=== PATIENT | male | born 1975 | race Caucasian/White ===

== ENCOUNTER 2019-03-22 18:59 | Inpatient (IN) | payer OTHER ==
[~2019-03-22] VITALS: Ht 182.9 cm; Wt 148.8 kg
[2019-03-22 19:07] VITALS: BP 203/126
[2019-03-22] MEDS ORDERED: REGLAN 10 MG TA10 MG PO (19:27)
[2019-03-22] MEDS ORDERED: HYDRALAZINE 2525 MG PO (19:29)
[2019-03-22] MEDS ORDERED: NORVASC5 MG PO (19:29)
[2019-03-22] MEDS ORDERED: CARVEDILOL25 MG PO (19:29)
[2019-03-22] MEDS ORDERED: CLONIDINE HCL0.2 M2 PO ×2 (19:30)
[2019-03-22] MEDS ORDERED: CHLORTHALIDONE25 MG PO (19:30)
[2019-03-22] MEDS ORDERED: GLIPIZIDE ER5 MG PO (19:31)
[2019-03-22] MEDS ORDERED: LIPITOR 20 MG T20 M1 PO (19:31)
[2019-03-22] MEDS ORDERED: QUINAPRIL HCL40 MG PO (19:31)
[2019-03-22] MEDS ORDERED: PRILOSEC OTC20 MG PO (19:32)
[2019-03-22] MEDS ORDERED: METFORMIN HCL500 MG PO (19:32)
[2019-03-22 19:46] LABS: ABSOLUTE EOSINOPHILS 0.5 thou/uL (0.0-0.7); ABSOLUTE LYMPHOCYTES 1.4 thou/uL (0.8-5.3); ABSOLUTE MONOCYTES 0.7 thou/uL (0.0-1.2); ABSOLUTE NEUTROPHILS 5.4 thou/uL (1.6-8.1); BASOPHILS 0.6 %; HEMATOCRIT 40.3 % (42.0-52.0); HEMOGLOBIN 14.1 gm/dL (14.0-18.0); LYMPHOCYTES 17.5 %; MCH 30.3 pg (26.0-34.0); MCHC 34.9 g/dL (28.0-37.0); MCV 86.6 fL (80.0-100.0); MONOCYTES 9.2 %; MPV 8.8 fl. (7.2-11.1); NUCLEATED RBCS 0 /100WBC; PLATELET COUNT* 226 thou/uL (150-400); POLYS 66.7 %; RBC 4.65 mil/uL (4.50-6.00); RDW-CV 13.5 % (10.5-14.5)
[2019-03-22 20:07] LABS: ANION GAP 9 mmol/L (7-16); BUN 19 mg/dL (7-18); CALCIUM 8.8 mg/dL (8.5-10.1); CHLORIDE 104 mmol/L (98-107); CO2 29 mmol/L (21-32); CREATININE 0.9 mg/dL (0.6-1.3); GLUCOSE 181 mg/dL (70-99); SODIUM 142 mmol/L (136-145)
[2019-03-22 20:09] LABS: POTASSIUM 2.9 mmol/L (3.5-5.1)
[2019-03-22 20:11] LABS: ALBUMIN 3.6 g/dL (3.4-5.0); ALKALINE PHOSPHATASE 62 U/L (46-116); LIPASE 129 U/L (73-393); NT-PRO BRAIN NAT PEPTIDE 170 pg/mL (<300); SGOT 29 U/L (15-37); SGPT 43 U/L (30-65); TOTAL BILIRUBIN 0.5 mg/dL (<0.1-1.0); TOTAL PROTEIN 6.6 g/dL (6.4-8.2); TROPONIN-I LEVEL <0.06 ng/mL (<0.06)
[2019-03-23 02:14] VITALS: BP 170/87
[2019-03-23 02:45] VITALS: BP 105/53
[2019-03-23 05:57] VITALS: BP 194/97
[2019-03-23 10:31] LABS: CALCIUM 8.9 mg/dL (8.5-10.1); CREATININE 0.7 mg/dL (0.6-1.3)
[2019-03-23 10:39] LABS: POTASSIUM 2.9 mmol/L (3.5-5.1)
[2019-03-23 12:08] LABS: URINE BILIRUBIN NEGATIVE (Negative); URINE BLOOD NEGATIVE (Negative); URINE CLARITY CLEAR; URINE COLOR YELLOW; URINE GLUCOSE-RANDOM TRACE (Negative); URINE KETONES 1+ (Negative); URINE LEUKOCYTES-REFLEX NEGATIVE (Negative); URINE NITRITE-REFLEX NEGATIVE (Negative); URINE PROTEIN 1+ (Negative); URINE SPECIFIC GRAVITY 1.015 (1.005-1.030)
[2019-03-23 13:03] LABS: AMP/METHAMP Negative (Negative); BARBITURATES Negative (Negative); BENZODIAZEPINES Negative (Negative); COCAINE Negative (Negative); METHADONE Negative (Negative); OPIATES Negative (Negative); PCP Negative (Negative); THC POSITIVE (Negative)
--- NOTE | 2019-03-23 15:39 | EKG ---
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1975 Requested By: Katrina Sidhu Order Number: [id number] MD: Kameron Lin Measurements Intervals [place] Rate: 74 P: 10 WV: 171 QRS: -19 QRSD: 107 T: -11 QT: 421 QTc: 467 Interpretive Statements Sinus rhythm Borderline left axis deviation Borderline T abnormalities, inferior leads Baseline wander in lead(s) II,aVR,aVF,V1,V2,V3,V4,V5,V6 No previous ECG available for comparison Electronically Signed On 03-23-2019 15:39:22 CDT by Kameron Lin [email or web address] <ELECTRONICALLY SIGNED> By: Kameron Lin MD, FACC 03/23/19 1539 14 14 Kameron Lin MD, FAC /EPI
--- NOTE | 2019-03-23 15:43 | EKG ---
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1975 Requested By: Katrina Sidhu Order Number: [id number] Haydee MD: Kameron Lin Measurements Intervals [place] Rate: 75 P: 3 [place]: 181 QRS: -23 QRSD: 105 T: 5 QT: 425 QTc: 475 Interpretive Statements Sinus rhythm Borderline left axis deviation Baseline wander in lead(s) V1,V2 No previous ECG available for comparison Electronically Signed On 03-23-2019 15:42:54 CDT by Kameron Lin [email or web address] <ELECTRONICALLY SIGNED> By: Kameron Lin MD, [facility] 03/23/19 1542 0541 0541 Kameron Lin MD, [facility] /EPI
[2019-03-23 17:20] VITALS: BP 140/80
[2019-03-23 17:40] VITALS: BP 140/72
[2019-03-23 20:00] VITALS: BP 161/87
[2019-03-24] VITALS (7 sets, daily range): BP systolic 148–181; BP diastolic 74–104
[2019-03-24 06:10] LABS: CALCIUM 8.4 mg/dL (8.5-10.1); CREATININE 0.8 mg/dL (0.6-1.3); MAGNESIUM 1.9 mg/dL (1.8-2.4); POTASSIUM 3.4 mmol/L (3.5-5.1)
--- NOTE | 2019-03-24 18:01 | CARDNUC ---
[place] [address] CARDIAC NUCLEAR IMAGING REPORT Name: LILIAN ISABEL Room: [address] IN [facility]#: [id number] Admission: 03/22/19 Attend Phys: Kimberley Oden, Discharge: Date of : 71 Date of Service: 03/24/19 1801 Report #: [id number] THIS REPORT FOR: //name// APPROVED REPORT Imaging Protocol: Sress only Study performed: 03/23/2019 09:10:00 Indication: Abnormal EKG, Dyspnea, HTN. Patient Location: In-Patient Room #: [place] Stress Tech: Parul Jennings Stress Nurse: Rhea Ruiz RN Ht: 6 ft 0 in Wt: 330 lbs BSA: 2.64 m2 BMI: 44.75 Medical History Medical History: Arrhythmia, Diabetes, HTN, Hyperlipidemia, Obesity , SOB. Medications: Hydralazine Glipizide, Chlortalidone, Home meds- Norvasc, Lipitor, Coreg, Clonidine, Metformin, Quinapril. Allergies: Codeine, Meperidine, Morphine, Sodium Pentathol. Cardiac Risk Factors: Age, DM, FHX of CAD, Malignant HTN,, Hyperlipidemia, SOB, Obesity. Previous Cardiac Procedures: None Pretest Chest Pain Characteristics: No chest pain Exercise History: Physically active Physical Disabilities: HTN, BMI. Meds Held (24 hrs): Coreg. Resting Data Rest SPECT myocardial perfusion imaging was performed in supine position 30 minutes following the intravenous injection of 37.4 mCi of Tc-99m Sestamibi. Time of rest injection: 10:10 Date: 03/24/2019 The images were gated to evaluate regional wall motion and calculate left ventricular ejection fraction. Administration Route: IV Administration Site: Left Arm Pharmacologic Stress Pharmacologic stress test was performed by injecting Regadenoson 0.4 mg IV push over 10-15 seconds immediately followed by the intravenous injection of 36.4 mCi of Tc-99m [place] [address] CARDIAC NUCLEAR IMAGING REPORT Name: NELSYLLIIAN GARCIA Nesha Room: [address]#: [id number] Admission: 03/22/19 Attend Phys: Kimberley Oden, Discharge: Date of : 71 Date of Service: 03/24/19 1801 Report #: [id number] Time of stress injection: 16:15 Date: 03/24/2019 Administration Route: IV Administration Site: Right AC Heart Rate at time of stress injection: 103 bpm. Gated Stress SPECT was performed 40 minutes after stress injection. The images were gated to evaluate regional wall motion and calculate left ventricular ejection fraction. Prone imaging was performed. Stress Test Details Stress Test: Pharmacologic stress was paired with low level exercise. Reason for pharmacologic stress test: HTN. HR Max Heart Rate (APMHR): 174 bpm Resting HR: 70 bpm Target HR (85% APMHR): 147 bpm Max HR Achieved: 103 bpm % of APMHR: 59 Recovery HR: 86 bpm BP Resting BP: 158/77 mmHg Max BP: 175/66 mmHg Recovery BP: 181/82 mmHg ECG Resting ECG: Sinus Rhythm Stress ECG: Sinus Rhythm ST Change: None Arrhythmia: None Recovery ECG: Sinus Rhythm Recovery ST Change: None Recovery Arrhythmia: None Clinical Reason for Termination: Completed protocol Stress Symptoms: SOA, Nausea. Exercise duration: 4 min 00 sec Exercise capacity: 2.30 METs The patient tolerated Lexiscan infusion without cardiac symptoms. Nurse Comments 44 year old male patient presented from emergency department with recent reports of Chest and back pain, SOA, and HTN. Patient tolerated walking Lexiscan. Recovery unremarkable [place] [address] CARDIAC NUCLEAR IMAGING REPORT Name: NELSYRADHALILIAN Room: [address]#: [id number] Admission: 03/22/19 Attend Phys: Kimberley Oden, Discharge: Date of : 71 Date of Service: 03/24/19 1801 Report #: [id number] Patient escorted to Nuclear Medicine for images. Patient was stable with no complaints at that time. Stress ECG Conclusion The baseline 12-lead EKG shows sinus rhythm without significant ST or T wave abnormality. His obtained during and post Lexiscan infusion sinus rhythm with no significant ST or T wave changes when compared to baseline. There were no stress-induced arrhythmias. Study Quality Study: Good Artifact: No artifact Study Data At rest, the left ventricular ejection fraction was 62%.. Post stress, the left ventricular ejection was 7%.. TID = 0.85. Perfusion Normal left ventricular perfusion. Wall Motion Normal left ventricular wall motion. Nuclear Conclusion ECG Findings: negative for ischemia Clinical Findings: negative for ischemia Nuclear Findings: negative for ischemia Exercise Capacity: not assessed Left Ventricular Function: normal Risk Study: low Myocardial perfusion images show no defect to suggest infarct or ischemia. Left ventricular systolic function appears normal on gated studies. This is a low risk study. <Conclusion> The baseline 12-lead EKG shows sinus rhythm without significant ST or T wave abnormality. His obtained during and post Lexiscan infusion sinus rhythm with no significant ST or T wave changes when compared to baseline. There were no stress-induced arrhythmias. <ELECTRONICALLY SIGNED> By: Kameron Lin MD, [facility] 03/24/191800 00 00 Kameron Lin MD, FACC /INF
[2019-03-25] VITALS: BP 121/72; BP 150/79
[2019-03-25 04:00] VITALS: BP 148/75
[2019-03-25 08:00] VITALS: BP 175/86
[2019-03-25] MEDS ORDERED: CATAPRESS3 TRANSDERM (12:19)
[2019-03-25 12:27] VITALS: BP 125/60
[2019-03-25] MEDS ORDERED: CARDURA4 MG PO (12:37)
[2019-03-25 14:39] VITALS: BP 125/60
[2019-03-26 08:07] LABS: RENIN < 0.167 ng/mL/hr (0.167-5.380)
[2019-03-26] MEDS ORDERED: NIFEDIPINE10 MG PO (13:15)
[2019-03-26] MEDS ORDERED: VISTARIL 25 MG25 M1 PO (14:30)
[2019-03-26 19:10] LABS: METANEPHRINE-PL 27 pg/mL (0-62); NORMETANEPHRINE - PL 85 pg/mL (0-145)
== END 2019-03-25 15:37 | disposition home or self-care (01) | DRG 305 ==
LOC: M.ERS 18:59 → M.TBA-ER 21:43 → M.2W 03-23 17:21
PROVIDERS: Family Medicine; Personal Emergency Response Attendant; ADMIT Internal Medicine
DX: I16.0 Hypertensive urgency (principal); Z68.41 Body mass index [BMI] 40.0-44.9, adult; E11.9 Type 2 diabetes mellitus without complications; I10 Essential (primary) hypertension; E66.9 Obesity, unspecified; G47.33 Obstructive sleep apnea (adult) (pediatric); G89.29 Other chronic pain; M54.9 Dorsalgia, unspecified; E87.6 Hypokalemia; E83.42 Hypomagnesemia; Z88.6 Allergy status to analgesic agent; Z88.8 Allergy status to other drugs, medicaments and biological substances; Z87.891 Personal history of nicotine dependence

== ENCOUNTER → 2019-03-22 | Outpatient (CLI) | payer OTHER ==
[~2019-03-22] MED LIST: CARDURA4 MG PO; CARVEDILOL25 MG PO; CATAPRESS3 TRANSDERM; CHLORTHALIDONE25 MG PO; CLONIDINE HCL0.2 M2 PO; GLIPIZIDE ER5 MG PO; HYDRALAZINE 2525 MG PO; LIPITOR 20 MG T20 M1 PO; METFORMIN HCL500 MG PO; NIFEDIPINE10 MG PO; NORVASC5 MG PO; PRILOSEC OTC20 MG PO; QUINAPRIL HCL40 MG PO; REGLAN 10 MG TA10 MG PO; VISTARIL 25 MG25 M1 PO
== END ==
LOC: M.ULTRA 09:30
DX: I10 Essential (primary) hypertension (principal)

== ENCOUNTER 2019-03-26 13:03 | Emergency (ER) | payer OTHER ==
[~2019-03-26] VITALS: Ht 185.4 cm; Wt 148.8 kg
[~2019-03-26 13:03] MED LIST changes: -NIFEDIPINE10 MG PO; -VISTARIL 25 MG25 M1 PO
[2019-03-26] MEDS ORDERED: NIFEDIPINE10 MG PO (13:15)
[2019-03-26 13:58] LABS: ABSOLUTE EOSINOPHILS 0.3 thou/uL (0.0-0.7); ABSOLUTE LYMPHOCYTES 1.1 thou/uL (0.8-5.3); ABSOLUTE MONOCYTES 0.8 thou/uL (0.0-1.2); ABSOLUTE NEUTROPHILS 4.5 thou/uL (1.6-8.1); BASOPHILS 0.5 %; EOSINOPHILS 4.4 %; HEMATOCRIT 42.1 % (42.0-52.0); HEMOGLOBIN 14.5 gm/dL (14.0-18.0); LYMPHOCYTES 15.9 %; MCH 30.2 pg (26.0-34.0); MCHC 34.5 g/dL (28.0-37.0); MCV 87.7 fL (80.0-100.0); MONOCYTES 11.4 %; MPV 8.4 fl. (7.2-11.1); NUCLEATED RBCS 0 /100WBC; PLATELET COUNT* 227 thou/uL (150-400); POLYS 67.8 %; RDW-CV 13.2 % (10.5-14.5); WBC 6.6 thou/uL (4.0-11.0)
[2019-03-26 14:09] LABS: POTASSIUM 3.5 mmol/L (3.5-5.1)
[2019-03-26 14:14] LABS: ALBUMIN 3.7 g/dL (3.4-5.0); TOTAL BILIRUBIN 0.6 mg/dL (<0.1-1.0); TOTAL PROTEIN 6.5 g/dL (6.4-8.2)
[2019-03-26] MEDS ORDERED: VISTARIL 25 MG25 M1 PO (14:30)
--- NOTE | 2019-03-26 14:39 | EKG ---
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 : 1975 Requested By: Sherly Chong Order Number: [id number] MD: Jovan Allen Measurements Intervals [place] Rate: 68 P: -9 [place]: 146 QRS: -16 QRSD: 104 T: 15 QT: 472 QTc: 503 Interpretive Statements Sinus rhythm Borderline left axis deviation Borderline T wave abnormalities Prolonged QT interval Compared to ECG 03/23/2019 05:41:51 T-wave abnormality now present Prolonged QT interval now present Electronically Signed On 03-26-2019 14:39:36 CDT by Jovan Allen [email or web address] <ELECTRONICALLY SIGNED> By: Jovan Allen MD, [facility] 03/26/19 1439 1340 1340 Jovan Allen MD, FAC /EPI
[2019-03-26 14:51] VITALS: BP 146/79
== END 2019-03-26 14:54 | disposition home or self-care (01) ==
LOC: M.ERS 13:03
PROVIDERS: Nurse Practitioner
DX: I95.9 Hypotension, unspecified (principal); F41.9 Anxiety disorder, unspecified; I10 Essential (primary) hypertension; E11.9 Type 2 diabetes mellitus without complications; G47.30 Sleep apnea, unspecified; Z88.5 Allergy status to narcotic agent; Z88.8 Allergy status to other drugs, medicaments and biological substances

== ENCOUNTER 2019-06-03 06:30 | Emergency (ER) | payer OTHER ==
[~2019-06-03] VITALS: Ht 182.9 cm; Wt 148.8 kg
[~2019-06-03 06:30] MED LIST changes: +NIFEDIPINE10 MG PO; +VISTARIL 25 MG25 M1 PO
[2019-06-03] MEDS ORDERED: NORVASC5 MG (06:37)
[2019-06-03] MEDS ORDERED: SPIRONOLACTONE50 MG (06:38)
[2019-06-03 06:59] LABS: ABSOLUTE BASOPHILS 0.1 thou/uL (0.0-0.2); ABSOLUTE EOSINOPHILS 0.6 thou/uL (0.0-0.7); ABSOLUTE MONOCYTES 0.7 thou/uL (0.0-1.2); ABSOLUTE NEUTROPHILS 4.6 thou/uL (1.6-8.1); BASOPHILS 0.9 %; EOSINOPHILS 8.6 %; HEMATOCRIT 38.3 % (42.0-52.0); HEMOGLOBIN 13.2 gm/dL (14.0-18.0); LYMPHOCYTES 14.3 %; MCH 31.2 pg (26.0-34.0); MCHC 34.6 g/dL (28.0-37.0); MCV 90.3 fL (80.0-100.0); MONOCYTES 10.1 %; MPV 8.4 fl. (7.2-11.1); NUCLEATED RBCS 0 /100WBC; PLATELET COUNT* 197 thou/uL (150-400); POLYS 66.1 %; RBC 4.24 mil/uL (4.50-6.00); RDW-CV 13.2 % (10.5-14.5)
[2019-06-03 07:03] LABS: ANION GAP 9 mmol/L (7-16); BUN 18 mg/dL (7-18); CALCIUM 8.6 mg/dL (8.5-10.1); CHLORIDE 104 mmol/L (98-107); CO2 29 mmol/L (21-32); GLUCOSE 130 mg/dL (70-99); POTASSIUM 3.8 mmol/L (3.5-5.1); SODIUM 142 mmol/L (136-145)
[2019-06-03 07:14] LABS: ALBUMIN 3.6 g/dL (3.4-5.0); ALKALINE PHOSPHATASE 63 U/L (46-116); LIPASE 163 U/L (73-393); NT-PRO BRAIN NAT PEPTIDE 75 pg/mL (<300); SGOT 27 U/L (15-37); SGPT 40 U/L (30-65); TOTAL BILIRUBIN 0.4 mg/dL (<0.1-1.0); TOTAL PROTEIN 6.7 g/dL (6.4-8.2); TROPONIN-I LEVEL <0.06 ng/mL (<0.06)
[2019-06-03] MEDS ORDERED: IBUPROFEN 800800 MG PO (09:30)
[2019-06-03 09:40] VITALS: BP 127/67
--- NOTE | 2019-06-03 11:08 | EKG ---
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1975 Requested By: Katrina Sidhu Order Number: [id number] MD: Jovan Allen Measurements Intervals [place] Rate: 68 P: 6 [place]: 179 QRS: -14 QRSD: 91 T: 15 QT: 415 QTc: 442 Interpretive Statements Sinus rhythm Low voltage, precordial leads Compared to ECG 03/26/2019 13:40:31 Low QRS voltage now present T-wave abnormality no longer present Prolonged QT interval no longer present Electronically Signed On 06-03-2019 11:08:23 CDT by Jovan Allen [email or web address] <ELECTRONICALLY SIGNED> By: Jovan Allen MD, [facility] 06/03/19 1108 0638 0638 Jovan Allen MD, [facility] /EPI
== END 2019-06-03 09:40 | disposition home or self-care (01) ==
LOC: M.ERS 06:30
PROVIDERS: Personal Emergency Response Attendant
DX: R07.89 Other chest pain (principal); I10 Essential (primary) hypertension; E11.9 Type 2 diabetes mellitus without complications; G47.30 Sleep apnea, unspecified; F41.9 Anxiety disorder, unspecified; Z88.5 Allergy status to narcotic agent; Z88.8 Allergy status to other drugs, medicaments and biological substances

== ENCOUNTER 2019-11-30 12:12 | Emergency (ER) | payer OTHER ==
[~2019-11-30] VITALS: Ht 182.9 cm; Wt 154.2 kg
[~2019-11-30 12:12] MED LIST changes: +IBUPROFEN 800800 MG PO; +NORVASC5 MG; +SPIRONOLACTONE50 MG
[2019-11-30] MEDS ORDERED: CATAPRES-TTS 11 EACH TRANSDERM (12:22)
[2019-11-30 13:03] LABS: ABSOLUTE EOSINOPHILS 0.2 thou/uL (0.0-0.7); ABSOLUTE LYMPHOCYTES 0.5 thou/uL (0.8-5.3); ABSOLUTE NEUTROPHILS 8.7 thou/uL (1.6-8.1); BASOPHILS 0.4 %; EOSINOPHILS 1.8 %; HEMATOCRIT 40.1 % (42.0-52.0); HEMOGLOBIN 13.9 gm/dL (14.0-18.0); LYMPHOCYTES 4.6 %; MCH 30.7 pg (26.0-34.0); MCHC 34.5 g/dL (28.0-37.0); MCV 88.8 fL (80.0-100.0); MONOCYTES 9.3 %; MPV 8.3 fl. (7.2-11.1); NUCLEATED RBCS 0 /100WBC; PLATELET COUNT* 181 thou/uL (150-400); POLYS 83.9 %; RBC 4.52 mil/uL (4.50-6.00); RDW-CV 13.1 % (10.5-14.5); WBC 10.3 thou/uL (4.0-11.0)
[2019-11-30 13:07] LABS: CALCIUM 8.9 mg/dL (8.5-10.1); CREATININE 1.2 mg/dL (0.6-1.3); POTASSIUM 3.6 mmol/L (3.5-5.1)
[2019-11-30 13:11] LABS: ALBUMIN 3.6 g/dL (3.4-5.0); TOTAL BILIRUBIN 0.6 mg/dL (<0.1-1.0); TOTAL PROTEIN 7.1 g/dL (6.4-8.2)
[2019-11-30] MEDS ORDERED: ONDANSETRON ODT4 MG PO (13:45)
[2019-11-30 13:54] VITALS: BP 146/85
--- NOTE | 2019-11-30 20:10 | EKG ---
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1975 Requested By: Elenita Rosen Order Number: [id number] MD: Kameron Lin Measurements Intervals [place] Rate: 84 P: 34 [place]: 166 QRS: -15 QRSD: 102 T: 40 QT: 373 QTc: 441 Interpretive Statements Sinus rhythm Borderline left axis deviation Low voltage, precordial leads Compared to ECG 06/03/2019 06:38:57 No significant changes Electronically Signed On 11-30-2019 20:09:10 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
== END 2019-11-30 13:55 | disposition home or self-care (01) ==
LOC: M.ERS 12:12
PROVIDERS: Physician Assistant
DX: R11.2 Nausea with vomiting, unspecified (principal); R19.7 Diarrhea, unspecified; I10 Essential (primary) hypertension; E11.9 Type 2 diabetes mellitus without complications; F41.9 Anxiety disorder, unspecified; G47.30 Sleep apnea, unspecified; Z98.890 Other specified postprocedural states; Z88.5 Allergy status to narcotic agent; Z88.8 Allergy status to other drugs, medicaments and biological substances